=== PATIENT | female | born 1970 | race Caucasian/White ===

== ENCOUNTER → 2020-06-12 08:47 | Outpatient (CLI) | payer OTHER, SELFPAY ==
--- NOTE | 2020-06-12 | DI.MG.S_ITS ---
BILATERAL DIGITAL SCREENING MAMMOGRAM 3D/2D WITH CAD: 06/12/2020 CLINICAL: Routine screening. Family history of breast cancer. Comparison is made to exams dated: 12/26/2018 mammogram, 12/18/2017 mammogram - [facility], 03/15/2016 mammogram, 03/09/2015 mammogram, 03/03/2014 mammogram, and 02/27/2012 mammogram - [facility]. The tissue of both breasts is extremely dense, which lowers the sensitivity of mammography. Current study was also evaluated with a Computer Aided Detection (CAD) system. No significant masses, calcifications, or other findings are seen in either breast. There has been no significant interval change. IMPRESSION: NEGATIVE There is no mammographic evidence of malignancy. A 1 year screening mammogram is recommended. This exam was interpreted at Station ID: [id number]. NOTE: For mammograms, a report in lay terms will be sent to the patient. Approximately 15% of breast malignancies will not be visualized mammographically. In the management of a palpable breast mass, a negative mammogram must not discourage biopsy of a clinically suspicious lesion. Electronically Signed By: Nathan lawrence/judie:06/14/2020 07:56:30 letter sent: Normal Exam ACR BI-RADS Category 1: Negative 3341F
== END ==
PROVIDERS: Family Provider Family Medicine; PCP Family Medicine; Referring Provider Obstetrics & Gynecology; Visit Provider Obstetrics & Gynecology
DX: Z12.31 Encounter for screening mammogram for malignant neoplasm of breast (principal); Z80.3 Family history of malignant neoplasm of breast
CPT/HCPCS: 77063; 77067

== ENCOUNTER → 2020-06-14 07:19 | Outpatient (CLI) | payer OTHER, SELFPAY ==
[2020-06-14 08:41] LABS: Free T4, Direct Thyroxine 0.92 ng/dL (0.78-2.19)
[2020-06-14 08:55] LABS: Thyroid Stimulating Hormone 3.13 uIU/mL (0.47-4.68)
== END ==
PROVIDERS: Family Provider Family Medicine; PCP Family Medicine; Referring Provider Obstetrics & Gynecology; Visit Provider Obstetrics & Gynecology
DX: N95.1 Menopausal and female climacteric states (principal)
CPT/HCPCS: 36415; 83001; 84439; 84443

== ENCOUNTER → 2020-11-10 07:00 | Outpatient (CLI) | payer OTHER, SELFPAY ==
--- NOTE | 2020-11-10 07:02 | DI.US.S_ITS ---
PROCEDURE: US PELVIC COMPLETE INDICATIONS: METRORRHAGIA TECHNIQUE: Real-time scanning was performed of the pelvic organs, with image documentation. Additional endovaginal scanning was necessary due to incomplete visualization of the adnexal and endometrial structures by transabdominal scanning. COMPARISON: [facility], US, PELVIC COMPLETE, 01/11/2010, 11:45. FINDINGS: Uterus: Uterus is normal in size at 8.3 x 4.9 x 6.0 cm. The endometrium measures 6.0 mm in combined thickness. 2 intramural fibroids, largest measuring 2.0 cm. Ovaries: Left ovary not visualized. 2.7 cm simple right ovarian cyst; otherwise normal right ovary. Other: No pathologic free abdominal or pelvic fluid. IMPRESSION: 1. 2 intramural fibroids, largest measuring 2.0 cm. 2. 2.7 cm simple right ovarian cyst. Dictated by: Edward Munroe [facility] Interpreted: Shlomo George MD on 11/12/2020 at 16:03 Transcribed by: ELVA on 11/12/2020 at 16:04 Approved by: Shlomo George M.D. on 11/12/2020 at 16:37
== END ==
PROVIDERS: Family Provider Family Medicine; PCP Family Medicine; Referring Provider Obstetrics & Gynecology; Visit Provider Obstetrics & Gynecology
DX: N92.6 Irregular menstruation, unspecified (principal); D25.1 Intramural leiomyoma of uterus; N83.291 Other ovarian cyst, right side
CPT/HCPCS: 76830; 76856

== ENCOUNTER → 2020-12-29 09:39 | Outpatient (CLI) | payer OTHER, SELFPAY ==
--- NOTE | 2020-12-29 09:40 | DI.US.S_ITS ---
PROCEDURE: US PELVIC COMPLETE INDICATIONS: 6wk f/u Right Ovarian Cyst TECHNIQUE: Real-time scanning was performed of the pelvic organs, with image documentation. Additional endovaginal scanning was necessary due to incomplete visualization of the adnexal and endometrial structures by transabdominal scanning. COMPARISON: [facility], , US PELVIC COMPLETE, 11/10/2020, 7:33. FINDINGS: Uterus: The uterus measures 7.4 x 4.1 x 3.9 centimeters. Endometrial thickness is 4.1 millimeters. 2 uterine fibroids are present: Right anterior intramural fibroid measuring 1.9 x 1.9 x 1.5 centimeters, right posterior intramural fibroid measuring 1.7 x 1.1 x 1.3 centimeters. Ovaries: The right ovary measures 2.8 x 1.6 x 2.4 centimeters. The left ovary measures 2.4 x 1.3 x 1.6 centimeters. A right ovarian cyst seen on the prior ultrasound is no longer visualized. The left ovary is not well seen. Other: No pathologic free abdominal or pelvic fluid. IMPRESSION: 1. Right ovarian cyst has resolved. 2. 2 intramural fibroids, unchanged. Dictated by: Mustapha Escobar M.D. on 12/29/2020 at 17:30 Approved by: Mustapha Escobar M.D. on 12/29/2020 at 17:33
== END ==
PROVIDERS: Family Provider Family Medicine; PCP Family Medicine; Referring Provider Obstetrics & Gynecology; Visit Provider Obstetrics & Gynecology
DX: N83.201 Unspecified ovarian cyst, right side (principal); D25.1 Intramural leiomyoma of uterus
CPT/HCPCS: 76830; 76856

== ENCOUNTER → 2021-03-14 09:05 | Outpatient (CLI) | payer OTHER, SELFPAY ==
[2021-03-14 11:36] LABS: Cholesterol 205 mg/dL (140-199); HDL Cholesterol 66 mg/dL (40-60); LDL Cholesterol Calculated 112 mg/dL (<100); Triglycerides 133 mg/dL (35-150)
== END ==
PROVIDERS: Family Provider Family Medicine; PCP Family Medicine; Referring Provider Obstetrics & Gynecology; Visit Provider Obstetrics & Gynecology
DX: E78.5 Hyperlipidemia, unspecified (principal)
CPT/HCPCS: 36415; 80061

== ENCOUNTER → 2021-07-13 11:30 | Outpatient (CLI) | payer OTHER, SELFPAY ==
--- NOTE | 2021-07-13 | DI.MG.S_ITS ---
BILATERAL DIGITAL SCREENING MAMMOGRAM 3D/2D WITH CAD: 07/13/2021 CLINICAL: Routine screening. Family history of breast cancer. Comparison is made to exams dated: 06/12/2020 mammogram - [facility], 12/26/2018 mammogram, 12/18/2017 mammogram - [facility], and 03/15/2016 mammogram - [facility]. The tissue of both breasts is extremely dense, which lowers the sensitivity of mammography. Current study was also evaluated with a Computer Aided Detection (CAD) system. No significant masses, calcifications, or other findings are seen in either breast. There has been no significant interval change. IMPRESSION: NEGATIVE There is no mammographic evidence of malignancy. A 1 year screening mammogram is recommended. This exam was interpreted at Station ID: [id number]. NOTE: For mammograms, a report in lay terms will be sent to the patient. Approximately 15% of breast malignancies will not be visualized mammographically. In the management of a palpable breast mass, a negative mammogram must not discourage biopsy of a clinically suspicious lesion. Electronically Signed By: Mustapha Escobar acr/penrad:07/13/2021 12:24:20 copy to: Jairon Canales letter sent: Normal Exam ACR BI-RADS Category 1: Negative 3341F
== END ==
PROVIDERS: Family Provider Family Medicine; PCP Internal Medicine; Referring Provider Family Medicine; Visit Provider Family Medicine
DX: Z12.31 Encounter for screening mammogram for malignant neoplasm of breast (principal)
CPT/HCPCS: 77063; 77067

== ENCOUNTER → 2022-07-24 10:42 | Outpatient (CLI) | payer OTHER, SELFPAY ==
--- NOTE | 2022-07-24 | DI.MG.S_ITS ---
BILATERAL DIGITAL SCREENING MAMMOGRAM 3D/2D WITH CAD: 07/24/2022 CLINICAL: Routine screening. Family history of breast cancer. Comparison is made to exams dated: 07/13/2021 mammogram, 06/12/2020 mammogram - [facility], and 12/26/2018 mammogram - [facility]. Both breasts are extremely dense, which lowers the sensitivity of mammography (category d />75% glandular tissue). Current study was also evaluated with a Computer Aided Detection (CAD) system. No significant masses, calcifications, or other findings are seen in either breast. There has been no significant interval change. IMPRESSION: NEGATIVE There is no mammographic evidence of malignancy. A 1 year screening mammogram is recommended. Based on the Tyrer Cuzick model (a risk assessment model) the patient's lifetime risk is 18.0% and her 10 year risk is 5.0%. According to the ACR, ACS, and NCCN guidelines, an annual breast MRI exam along with mammogram is recommended if the patient's lifetime risk is 20% or greater. This exam was interpreted at Station ID: [id number]. NOTE: For mammograms, a report in lay terms will be sent to the patient. Approximately 15% of breast malignancies will not be visualized mammographically. In the management of a palpable breast mass, a negative mammogram must not discourage biopsy of a clinically suspicious lesion. Electronically Signed By: Griffin rebollar/judie:07/24/2022 11:29:15 letter sent: Normal Exam ACR BI-RADS Category 1: Negative 3341F
== END ==
PROVIDERS: Family Provider Family Medicine; PCP Internal Medicine; Referring Provider Internal Medicine; Visit Provider Internal Medicine
DX: Z12.31 Encounter for screening mammogram for malignant neoplasm of breast (principal); Z80.3 Family history of malignant neoplasm of breast
CPT/HCPCS: 77063; 77067

== ENCOUNTER → 2023-03-27 10:53 | Outpatient (CLI) | payer OTHER, SELFPAY ==
[2023-03-27 12:16] LABS: Add Manual Diff / Slide Review NO; Basophils Absolute Auto 100 /uL (0-100); Eosinophils Absolute Auto 100 /uL (0-450); Eosinophils Percent Auto 1.3 % (2-4); Hematocrit 41.8 % (36-46); Hemoglobin 14.6 g/dL (12.0-16.0); Lymphocytes Absolute Auto 1400 /uL (1100-4500); Mean Corpuscular HGB Conc 34.8 % (30-36); Mean Corpuscular Hemoglobin 32.2 PG (26-34); Mean Corpuscular Volume 92.4 fL (80-100); Monocytes Absolute Auto 500 /uL (0-900); Monocytes Percent Auto 8.7 % (3-14); Neutrophils Absolute Auto 3400 /uL (1500-7000); Platelet Count 267 X10^3/uL (150-400); Red Blood Cell Count 4.52 X10^6/uL (4.0-5.2); Red Cell Distribution Width 12.7 % (11.6-14.8); White Blood Cell Count 5.3 X10^3/uL (4.5-11.0)
[2023-03-27 12:55] LABS: Alanine Aminotransferase 15 IU/L (<35); Albumin 4.5 g/dL (3.5-5.0); Albumin Globulin Ratio 1.6 (1.0-2.8); Alkaline Phosphatase 34 U/L (38-126); Aspartate Aminotransferase 21 IU/L (14-36); BUN Creatinine Ratio 20.8 (6-22); Bilirubin Total 0.7 mg/dL (0.2-1.3); Blood Urea Nitrogen 16 mg/dL (7-17); Calcium 9.7 mg/dL (8.4-10.2); Carbon Dioxide 26 mmol/L (22-32); Chloride 103 mmol/L (98-107); Cholesterol 256 mg/dL (140-199); Estimated Glomerular Filt Rate > 60 mL/min (>60); Globulin 2.9 g/dL (1.7-4.1); Glucose 83 mg/dL (70-100); HDL Cholesterol 68 mg/dL (40-60); HEMOLYSIS < 15 (0-50); LDL Cholesterol Calculated 171 mg/dL (<100); Sodium 138 mmol/L (137-145); Total Protein 7.4 g/dL (6.3-8.2); Triglycerides 87 mg/dL (35-150)
[2023-03-27 13:10] LABS: Free T3, Triiodothyronine Free 3.16 pg/mL (2.77-5.27); Free T4, Direct Thyroxine 1.07 ng/dL (0.78-2.19)
[2023-03-27 13:23] LABS: Thyroid Stimulating Hormone 0.893 uIU/mL (0.47-4.68)
== END ==
PROVIDERS: Family Provider Family Medicine; PCP Internal Medicine; Referring Provider Internal Medicine; Visit Provider Internal Medicine
DX: Z86.010 Personal history of colon polyps (principal); D64.9 Anemia, unspecified; E78.5 Hyperlipidemia, unspecified; R03.0 Elevated blood-pressure reading, without diagnosis of hypertension
CPT/HCPCS: 36415; 80053; 80061; 84439; 84443; 84481; 85025

== ENCOUNTER → 2023-08-03 07:45 | Outpatient (CLI) | payer OTHER, SELFPAY ==
--- NOTE | 2023-08-03 07:46 | DI.MG.S_ITS ---
BILATERAL DIGITAL SCREENING MAMMOGRAM 3D/2D WITH CAD: 08/03/2023 CLINICAL: Routine screening. Family history of breast cancer. Comparison is made to exams dated: 07/24/2022 mammogram, 07/13/2021 mammogram, and 06/12/2020 mammogram - [facility]. Both breasts are heterogeneously dense, which may obscure small masses (category c / 51-75% glandular tissue). Current study was also evaluated with a Computer Aided Detection (CAD) system. No significant masses, calcifications, or other findings are seen in either breast. There has been no significant interval change. IMPRESSION: NEGATIVE There is no mammographic evidence of malignancy. A 1 year screening mammogram is recommended. Based on the Tyrer Cuzick model (a risk assessment model) the patient's lifetime risk is 12.7% and her 10 year risk is 3.7%. According to the ACR, ACS, and NCCN guidelines, an annual breast MRI exam along with mammogram is recommended if the patient's lifetime risk is 20% or greater. This exam was interpreted at Station ID: [id number]. NOTE: For mammograms, a report in lay terms will be sent to the patient. Approximately 15% of breast malignancies will not be visualized mammographically. In the management of a palpable breast mass, a negative mammogram must not discourage biopsy of a clinically suspicious lesion. Electronically Signed By: Aida harding/judie:08/03/2023 10:06:57 letter sent: Normal Exam ACR BI-RADS Category 1: Negative 3341F
[2023-08-03 09:48] LABS: Progesterone, Total 5.71 ng/mL
[2023-08-03 10:03] LABS: Estradiol, Total 33.3 pg/mL
== END ==
PROVIDERS: Obstetrics & Gynecology; Family Provider Family Medicine; PCP Internal Medicine; Referring Provider Internal Medicine; Visit Provider Internal Medicine
DX: Z12.31 Encounter for screening mammogram for malignant neoplasm of breast (principal); Z80.3 Family history of malignant neoplasm of breast; R92.333 Mammographic heterogeneous density, bilateral breasts; N95.1 Menopausal and female climacteric states
CPT/HCPCS: 36415; 77063; 77067; 82670; 83001; 84144

== ENCOUNTER → 2023-11-06 09:08 | Outpatient (CLI) | payer OTHER, SELFPAY ==
--- NOTE | 2023-11-06 09:09 | DI.US.S_ITS ---
PROCEDURE: US PELVIC COMPLETE INDICATIONS: POSTMENOPAUSAL BLEEDING ON HORMONE REPLACEMENT THERAPY TECHNIQUE: Real-time scanning was performed of the pelvic organs, with image documentation. Additional endovaginal scanning was necessary due to incomplete visualization of the adnexal and endometrial structures by transabdominal scanning. COMPARISON: [facility], US, US PELVIC COMPLETE, 12/29/2020, 10:10. FINDINGS: Uterus: Uterus is anteverted and normal in size at 8.4 x 5.3 x 5.4 cm. The myometrium is heterogeneous. The endometrium measures 6.1 mm combined thickness. The markedly heterogeneous appearance of the uterus suggest possible adenomyosis. There are 2 fibroids measured, 1 of which is right posterior intramural, measuring 1.4 cm. The other is midline anterior intramural, measuring 2.0 cm. Ovaries: The right ovary measures 2.9 x 1.4 x 1.7 cm, with a calculated ovarian volume of 3.6 cc. Left ovary not seen. No adnexal masses are seen. Other: No pathologic free abdominal or pelvic fluid. IMPRESSION: 1. There are uterine fibroids, and the uterus has an appearance suggesting adenomyosis. 2. Thickened endometrium, measuring 6.1 mm, in a patient with postmenopausal bleeding. We strive to produce accurate, complete, and clear reports of imaging services. To assist us in improving patient care, this report was composed using standard report templates and voice recognition software. Therefore, it may contain abnormal punctuation, insertions and/or omissions. Occasional wrong-word or sound-alike substitutions may occur. Though we review the report and make efforts to correct it, we do recommend that the report be read carefully in proper context to recognize any text inaccuracies. Dictated by: Alireza Faria M.D. on 11/06/2023 at 14:59 Approved by: Alireza Faria M.D. on 11/06/2023 at 15:04
== END ==
PROVIDERS: Family Provider Family Medicine; PCP Internal Medicine; Referring Provider Obstetrics & Gynecology; Visit Provider Obstetrics & Gynecology
DX: N95.0 Postmenopausal bleeding (principal); D25.1 Intramural leiomyoma of uterus; R93.89 Abnormal findings on diagnostic imaging of other specified body structures; Z79.890 Hormone replacement therapy
CPT/HCPCS: 76830; 76856

== ENCOUNTER → 2024-02-01 08:32 | Outpatient (CLI) | payer OTHER, SELFPAY ==
--- NOTE | 2024-02-01 | DI.MRI.S_ITS ---
PROCEDURE: MR BRAIN (IAC) WWO CON INDICATIONS: HEARING LOSS TECHNIQUE: Noncontrast sagittal T1 spin echo, axial FLAIR, axial gradient echo, axial diffusion and ADC through the brain. Axial thin-slice 3D CISS, coronal TruFISP, axial T1 spin echo with fat saturation through the internal auditory canals. After the administration of contrast, thin slice axial and coronal T1 spin echo with fat saturation through the internal auditory canals, and axial and coronal and sagittal T1 spin echo with fat saturation through the brain. COMPARISON: None. FINDINGS: Image quality: Diagnostic, with note made of motion artifact. Cerebellopontine angles: No cerebellopontine angle masses. Inner ear structures appear normally formed. No suspicious enhancement in the internal auditory canal or along the course of the 7th cranial nerve. CSF spaces: Ventricles are normal in size and shape. No extra-axial fluid collections. Basal cisterns are patent. Brain: No intracranial bleeds or mass effects. [place]-white matter interface is intact. No abnormal intracranial enhancement. Diffusion weighted images demonstrate no acute ischemic insults. Brainstem appears normal. Normal intravascular flow voids are present. Skull and face: Calvarial marrow signal is normal. Orbits appear normal. Sinuses: Sinuses and mastoids are clear. IMPRESSION: No significant abnormality is seen. Specifically, no masses or abnormal enhancement are seen within the cerebellopontine angle cisterns or within the internal auditory canals. Dictated by: Hardeep Wilson M.D. on 02/01/2024 at 16:32 Approved by: Hardeep Wilson M.D. on 02/01/2024 at 16:33
== END ==
PROVIDERS: PCP Internal Medicine; Referring Provider Otolaryngology; Visit Provider Otolaryngology
DX: H93.A1 Pulsatile tinnitus, right ear (principal)
CPT/HCPCS: 70553; A9579

== ENCOUNTER → 2024-03-18 10:12 | Outpatient (CLI) | payer OTHER, SELFPAY ==
[2024-03-18 11:24] LABS: Cholesterol 247 mg/dL (140-199); HDL Cholesterol 64 mg/dL (40-60); LDL Cholesterol Calculated 155 mg/dL (<100); Triglycerides 138 mg/dL (35-150); VLDL Cholesterol Calculated 28 mg/dL (2-30)
[2024-03-18 11:36] LABS: Vitamin D 25 Hydroxy (D3) 47.5 ng/mL (30.0-100.0)
[2024-03-18 11:55] LABS: TSH w/ Reflex to FT4 1.45 uIU/mL (0.47-4.68)
== END ==
PROVIDERS: PCP Internal Medicine; Referring Provider Obstetrics & Gynecology; Visit Provider Obstetrics & Gynecology
DX: Z00.00 Encounter for general adult medical examination without abnormal findings (principal); Z82.62 Family history of osteoporosis
CPT/HCPCS: 36415; 80061; 82306; 84443

== ENCOUNTER 2024-04-03 11:59 | Day surgery (SDC) | payer OTHER, SELFPAY ==
[2024-04-03] MEDS: LACTATED RINGERS 1,000 ML 42 ML IV (12:27)
[2024-04-03 12:34] VITALS: BP 141/79; PULSE 74; RESP 14; TEMP 36.4; O2SAT 99
--- NOTE | 2024-04-03 13:34 | P.HP_ITS ---
History of Present Illness History of Present Illness Date Patient Seen: 04/03/24 Time Patient Seen: 13:34 [address]: [facility] Narrative: Rosey is a 53-year-old woman here for a colonoscopy. Her last colonoscopy was a proximally 2020 in [place] and she believes 1 polyp was removed. She believes her endoscopist was Dr. Winter. No family history of colon cancer. [facility] Medical History (Updated 03/18/24 @ 10:26 by Bienvenido Lo MD) Post-menopause bleeding H/O adenomatous polyp of colon Perimenopausal symptoms Chicken pox (~1974) Hyperlipidemia (04/23/13) Surgical History Anesthesia History of section Status post eye surgery Family History Father Hypertension Hyperlipidemia History of heart disease Grandfather Stomach cancer Mother Hypothyroid Hyperlipidemia Osteoarthritis Grandfather History of heart disease Social History Smoking Status: Never smoker alcohol intake: current Meds Home Medications and Allergies Home Medications Medication Instructions Recorded Confirmed Type estradiol 0.075 mg/24 hr 1 patch transdermal 2XW #24 ea 06/25/23 04/03/24 Rx semiweekly transdermal patch (Vivelle-Dot) progesterone micronized 200 mg 200 mg PO BEDTIME #30 caps 10/23/23 04/03/24 Rx capsule (Prometrium) Allergies Allergy/AdvReac Type Severity Reaction Status Date / Time No Known Drug Allergies Allergy Verified 04/03/24 12:39 Exam Vital Signs (past 8 hours): - 04/03/24 12:34 Temperature 97.6 F Pulse Rate 74 Respiratory Rate 14 Blood Pressure 141/79 H Pulse Oximetry 99 Oxygen Delivery Method Room Air Oxygen Delivery Method Room Air Const General: healthy appearing Assessment & Plan Assessment and plan (1) H/O adenomatous polyp of colon: Status: Inactive Plan Colonoscopy Time-Based Coding :: [TOTAL MINUTES] spent with patient and on the chart (including review of chart, obtaining history, exam, reviewing outside data, placing orders, documenting exam and treatment plan, and counseling patient) on [DATE]. [employer] Document charge(s): No
--- NOTE | 2024-04-03 14:03 | PM.OP.COLON ---
Operative Date/Time/Diagnoses Date of procedure: 04/03/24 Time of procedure: 14:03 Pre-op diagnosis: History of adenomatous polyp Post-op diagnosis: same Procedure & Clinicians Study performed: Colonoscopy Same procedure as scheduled: Yes Surgeon: French Salas Procedure Notes Procedure in detail: Surgeon: French Salas MD Anesthesia: Tristian Cm DO Procedure: The patient was brought to the endoscopy suite, placed in left lateral decubitus position. The patient was connected to monitoring devices. A time-out was performed. Sedation was administered. Once the patient was adequately sedated, a digital rectal exam was performed and was normal. The scope was then inserted and advanced to the cecum where the appendiceal orifice was identified and photographed. The scope was then slowly withdrawn over greater than 6 minutes. The mucosa was thoroughly inspected. No abnormalities were found. The scope was retroflexed in the rectum. No abnormalities were seen. The scope was straightened and removed. The patient was awakened and brought to recovery. Scope withdrawal time: 7 minutes Sedation time: 14 minutes EBL: 0 Findings: Normal colon Post-procedure Recommendations: Colonoscopy in 10 years Disposition: PACU
[2024-04-03 14:04] VITALS: BP 110/16; PULSE 88; RESP 16; TEMP 36.8; O2SAT 98
[2024-04-03 14:10] VITALS: BP 110/70; PULSE 78; RESP 16; O2SAT 98
[2024-04-03 14:15] VITALS: BP 120/70; PULSE 78; RESP 16; TEMP 36.2; O2SAT 98
[2024-04-03 14:20] VITALS: BP 112/70; PULSE 78; RESP 16; TEMP 36.2; O2SAT 98
== END 2024-04-03 14:32 | disposition home or self-care (01) ==
PROVIDERS: PCP Internal Medicine; Referring Provider Surgery; Visit Provider Surgery
PROC: 0DJD8ZZ Inspection of Lower Intestinal Tract, Via Natural or Artificial Opening Endoscopic (ICD-10-PCS; CPT 45378; principal; 2024-04-03 13:30)
DX: Z12.11 Encounter for screening for malignant neoplasm of colon (principal); Z86.0101 Personal history of adenomatous and serrated colon polyps
CPT/HCPCS: 45378; J2704

== ENCOUNTER → 2024-08-22 12:31 | Outpatient (CLI) | payer OTHER, SELFPAY ==
--- NOTE | 2024-08-22 12:32 | DI.MG.S_ITS ---
MM screening mammo BI: 08/22/2024. BI-RADS: 1 CLINICAL: 54-year old female for bilateral screening mammogram. Tyrer-Cuzick lifetime risk of 14.9%. No personal or first-degree family history of breast cancer. Current reported family history of breast cancer: maternal aunt. PRIOR EXAMS 08/03/2023, 07/24/2022, 07/13/2021, 06/12/2020. MAMMOGRAPHY TECHNIQUE: 2D and 3D (tomosynthesis) digital mammographic views obtained, with additional images as needed for full coverage. Current study was also evaluated with a Computer Aided Detection (CAD) system. DENSITY D. The breasts are extremely dense, which lowers the sensitivity of mammography. MAMMOGRAPHY FINDINGS Bilateral: No suspicious mass, asymmetry, microcalcification, or other abnormality seen. IMPRESSION: * No evidence of malignancy. RECOMMENDATIONS Bilateral * Annual screening mammography. OVERALL ASSESSMENT CATEGORY BI-RADS-1: Negative. The [employer] recommends annual screening mammography beginning at age 40 for women with average risk of breast cancer. ELECTRONICALLY SIGNED: Elizabeth Joyce M.D. on 08/24/2024 at 01:00:36 AM PT Interpreting Station ID: [id number]
== END ==
LOC: MAMMO 12:31
PROVIDERS: PCP Internal Medicine; Referring Provider Internal Medicine; Visit Provider Internal Medicine
DX: Z12.31 Encounter for screening mammogram for malignant neoplasm of breast (principal); Z80.3 Family history of malignant neoplasm of breast; R92.333 Mammographic heterogeneous density, bilateral breasts
CPT/HCPCS: 77063; 77067

== ENCOUNTER → 2024-11-04 14:06 | Outpatient (CLI) | payer OTHER, SELFPAY ==
--- NOTE | 2024-11-04 14:07 | DI.US.S_ITS ---
PROCEDURE: US PELVIC COMPLETE INDICATIONS: Postmenopausal bleeding TECHNIQUE: Real-time scanning was performed of the pelvic organs, with image documentation. Additional endovaginal scanning was necessary due to incomplete visualization of the adnexal and endometrial structures by transabdominal scanning. COMPARISON: [facility], , US PELVIC COMPLETE, 11/06/2023, 9:25. FINDINGS: Uterus: Overall the findings are similar to the prior exam with heterogeneous echogenicity of the uterus myometrium may represent adenomyosis or other process. At least 2 uterine leiomyomata are again noted. Mid posterior subserosal 1.6 x 1.5 x 1.4 cm. Mid anterior intramural 3.5 x 2.5 x 2.3 cm. Mildly increased. Endometrial echo complex is not well visualized per notes possibly obscured by leiomyomata and heterogeneous uterus. Incidental note is made of mildly dilated periuterine vessels, nonspecific may be related to pelvic venous insufficiency or other process. Ovaries: The right ovary measures 1.9 x 1.3 x 1.0 cm, with a calculated ovarian volume of 1.3 cc. The left ovary measures 2.1 x 2.0 x 1.1 cm, with a calculated ovarian volume of 2.3 cc. The ovaries have a normal sonographic appearance. Less than 12 follicles can be seen in each ovary. No adnexal masses are seen. Other: No pathologic free abdominal or pelvic fluid. IMPRESSION: Heterogeneous uterus as discussed above and uterine leiomyoma mildly increased. Endometrial echo complex not well visualized. Mildly dilated periuterine vessels. Follow-up suggested if no intervention performed. If symptoms persist or worsen, or there is high clinical suspicion of pelvic abnormality, MRI could be performed. We strive to produce accurate, complete, and clear reports of imaging services. To assist us in improving patient care, this report was composed using standard report templates and voice recognition software. Therefore, it may contain abnormal punctuation, insertions and/or omissions. Occasional wrong-word or sound-alike substitutions may occur. Though we review the report and make efforts to correct it, we do recommend that the report be read carefully in proper context to recognize any text inaccuracies. Dictated by: Dav Moreno M.D. on 11/04/2024 at 15:47 Approved by: Dav Moreno M.D. on 11/04/2024 at 15:53
== END ==
LOC: US 14:07
PROVIDERS: PCP Registered Nurse; Referring Provider Registered Nurse; Visit Provider Registered Nurse
DX: N95.0 Postmenopausal bleeding (principal); D25.1 Intramural leiomyoma of uterus; D25.2 Subserosal leiomyoma of uterus
CPT/HCPCS: 76830; 76856